=== PATIENT | female | born 1965 | race Caucasian/White ===

== ENCOUNTER 2016-07-23 09:43 | Inpatient (IN) | payer BC ==
[~2016-07-23] VITALS: Ht 165.1 cm; Wt 68.0 kg
[2016-07-23 09:43] VITALS: BP_SYST 144
[2016-07-23] MEDS ORDERED: PIPERACILLIN/TAZO 3.38 GM in D5W 50 ML IV ONE (10:00)
[2016-07-23 10:08] LABS: BILIRUBIN,URINE NEGATIVE (NEGATIVE); BLOOD, URINE 2+ (NEGATIVE); CLARITY/URINE CLEAR (CLEAR); COLOR,URINE YELLOW (YELLOW); GLUCOSE,URINE NEGATIVE (NEGATIVE); KETONES,URINE NEGATIVE (NEGATIVE); LEUKOCYTE ESTERASE ,URINE NEGATIVE (NEGATIVE); NITRITE, URINE NEGATIVE (NEGATIVE); PROTEIN URINE NEGATIVE (NEGATIVE); UROBILINOGEN,URINE 0.2 (0.2-1.0)
[2016-07-23 10:16] LABS: BACTERIA,URINE RARE /HPF (None Seen); WBC,URINE 0-3 /HPF (0-3)
[2016-07-23] MEDS ORDERED: PIPERACILLIN/TAZOBACTAM 3.375 GM/VIAL (ZOSYN) IV ONE (10:16)
[2016-07-23 10:24] LABS: BASOPHILS # (AUTO) 0.1 K/uL (0.0-0.2); BASOPHILS % (AUTO) 1.2 % (0.0-2.0); EOSINOPHILS # (AUTO) 0.1 K/uL (0.0-0.4); EOSINOPHILS % (AUTO) 1.2 % (0.0-4.0); HEMATOCRIT 42.5 % (36-48); HEMOGLOBIN 14.2 g/dL (12.0-16.0); MEAN CORPUSCULAR HEMOGLOBIN 32 pg (27-31); MEAN CORPUSCULAR HGB CONC 33 % (32-36); MEAN CORPUSCULAR VOLUME 95 fL (79.0-98.0); MONOCYTES # (AUTO) 0.6 K/uL (0.0-1.0); MONOCYTES % (AUTO) 6.9 % (1.7-9.3); NEUTROPHILS # (AUTO) 6.5 K/uL (1.8-7.7); NEUTROPHILS % (AUTO) 69.7 % (40.0-70.0); PLATELET COUNT (AUTO) 198 K/uL (130-430); RED BLOOD CELL COUNT(AUTO) 4.48 MIL/uL (4.2-6.2); RED CELL DISTRIBUTION WIDTH 12.2 % (9.0-15.0); WHITE BLOOD COUNT (AUTO) 9.3 K/uL (4.8-10.8)
[2016-07-23 10:31] LABS: CREATININE 0.7 mg/dL (0.55-1.30); POTASSIUM 4.4 mmol/L (3.5-5.1)
[2016-07-23 10:36] LABS: ALBUMIN 4.2 g/dL (3.4-4.8); TOTAL BILIRUBIN 0.5 mg/dL (0.0-1.0); TOTAL PROTEIN, SERUM 7.8 g/dL (6.4-8.3)
[2016-07-23 10:40] LABS: INR 0.9 (0.8-1.2); PROTHROMBIN TIME 9.9 SECS (9.5-12.5)
[2016-07-23] MEDS ORDERED: MORPHINE 2 MG/ML INJ. SYRINGE IVP ONE (10:45)
[2016-07-23] MEDS ORDERED: ONDANSETRON HCL 4 MG/2 ML VIAL IVP ONE (10:45)
[2016-07-23] MEDS ORDERED: IOHEXOL 100 ML IV ONE (11:19)
[2016-07-23] MEDS ORDERED: [UNRECOGNIZED DRUG - REMARK] XX ONE (12:30)
[2016-07-23] MEDS ORDERED: ESTR0.3T3 PO (12:39)
[2016-07-23] MEDS ORDERED: LEVO150T PO (12:39)
[2016-07-23 12:46] VITALS: BP_SYST 141
[2016-07-23] MEDS ORDERED: KETOROLAC TROMETHAMINE 15 MG VIAL IVP PRN (13:45)
[2016-07-23] MEDS ORDERED: ONDANSETRON HCL 4 MG/2 ML VIAL IVP PRN (13:45)
[2016-07-23] MEDS ORDERED: FAMOTIDINE 20 MG TABLET PO ONE (14:15)
[2016-07-23] MEDS: MORPHINE 4 MG/ML INJ. SYRINGE IVP PRN ×2 (14:17→19:39)
[2016-07-23] MEDS: LR 1,000 ML IV SCH (14:17)
[2016-07-23] MEDS: AMPICILLIN SODIUM/SULBACTAM NA 3 GM in NS 100 ML IV SCH (19:30)
[2016-07-23 19:45] VITALS: BP_SYST 139
[2016-07-23] MEDS: LACTOBACILLUS RHAMNOSUS GG 1 CAP CAPSULE PO SCH (20:52)
[2016-07-23] MEDS: HYDROcodone/ACETAMIN 10-325 MG TAB PO PRN (23:29)
[2016-07-24] VITALS (7 sets, daily range): BP systolic 119–140
[2016-07-24] MEDS: AMPICILLIN SODIUM/SULBACTAM NA 3 GM in NS 100 ML IV SCH ×3 (00:03→11:10)
[2016-07-24] MEDS: TEMAZEPAM 15 MG CAPSULE PO PRN ×2 (00:03→21:40)
[2016-07-24] MEDS: LR 1,000 ML IV SCH (05:33)
[2016-07-24 07:43] LABS: ALBUMIN 3.5 g/dL (3.4-4.8); CALCIUM 8.6 mg/dL (8.4-11.0); CREATININE 0.64 mg/dL (0.55-1.30); POTASSIUM 3.5 mmol/L (3.5-5.1); TOTAL BILIRUBIN 0.6 mg/dL (0.0-1.0)
[2016-07-24 07:44] LABS: BASOPHILS # (AUTO) 0.1 K/uL (0.0-0.2); BASOPHILS % (AUTO) 1.9 % (0.0-2.0); EOSINOPHILS # (AUTO) 0.1 K/uL (0.0-0.4); EOSINOPHILS % (AUTO) 1.6 % (0.0-4.0); HEMATOCRIT 37.9 % (36-48); LYMPHOCYTES # (AUTO) 1.9 K/uL (1.0-5.5); LYMPHOCYTES % (AUTO) 24.8 % (20.5-51.5); MEAN CORPUSCULAR HEMOGLOBIN 33 pg (27-31); MEAN CORPUSCULAR HGB CONC 34 % (32-36); MEAN CORPUSCULAR VOLUME 96 fL (79.0-98.0); MONOCYTES # (AUTO) 0.6 K/uL (0.0-1.0); MONOCYTES % (AUTO) 8.3 % (1.7-9.3); NEUTROPHILS # (AUTO) 5.1 K/uL (1.8-7.7); NEUTROPHILS % (AUTO) 63.4 % (40.0-70.0); PLATELET COUNT (AUTO) 175 K/uL (130-430); RED BLOOD CELL COUNT(AUTO) 3.93 MIL/uL (4.2-6.2); RED CELL DISTRIBUTION WIDTH 12.4 % (9.0-15.0); WHITE BLOOD COUNT (AUTO) 7.8 K/uL (4.8-10.8)
[2016-07-24] MEDS: MORPHINE 4 MG/ML INJ. SYRINGE IVP PRN ×4 (07:47→21:39)
[2016-07-24] MEDS: HYDROcodone/ACETAMIN 10-325 MG TAB PO PRN ×2 (11:03→15:19)
[2016-07-24] MEDS: FAMOTIDINE 20 MG TABLET PO SCH (11:10)
[2016-07-24] MEDS: LACTOBACILLUS RHAMNOSUS GG 1 CAP CAPSULE PO SCH ×2 (11:10→21:39)
[2016-07-25] MEDS: AMPICILLIN SODIUM/SULBACTAM NA 3 GM in NS 100 ML IV SCH ×3 (00:44→11:14)
[2016-07-25] MEDS: LR 1,000 ML IV SCH (00:45)
[2016-07-25 00:53] VITALS: BP_SYST 118
[2016-07-25 04:10] VITALS: BP_SYST 121
[2016-07-25 09:33] VITALS: BP_SYST 130
[2016-07-25] MEDS: FAMOTIDINE 20 MG TABLET PO SCH (09:45)
[2016-07-25] MEDS: LACTOBACILLUS RHAMNOSUS GG 1 CAP CAPSULE PO SCH (09:45)
[2016-07-25 11:49] VITALS: BP_SYST 134
[2016-07-25 12:00] VITALS: BP_SYST 106
== END 2016-07-25 12:35 | disposition home or self-care (01) | DRG 603 ==
LOC: SED 09:43 → SMU 12:24
PROVIDERS: ADMIT Internal Medicine; ATTEND Internal Medicine
DX: L03.211 Cellulitis of face (principal); K02.9 Dental caries, unspecified; G43.909 Migraine, unspecified, not intractable, without status migrainosus; K04.7 Periapical abscess without sinus; E03.9 Hypothyroidism, unspecified; H54.42 Blindness, left eye, normal vision right eye; Z90.710 Acquired absence of both cervix and uterus; Z97.0 Presence of artificial eye
CPT/HCPCS: 36415; 70487; 80053; 81000-TC; 83605; 85025; 85610-TC; 85730-TC; 87040-TC; 96374; 96375; 99285; J0295; J2270; J2405; J2543; J7120; Q9967

== ENCOUNTER 2018-09-27 08:08 | Emergency (ER) | payer BC ==
[~2018-09-27] VITALS: Ht 165.1 cm; Wt 74.8 kg
[~2018-09-27 08:08] MED LIST: ESTR0.3T3 PO; LEVO150T PO
[2018-09-27 08:16] VITALS: BP_SYST 131
--- NOTE | 2018-09-27 08:20 | NUR ---
Patient to ER bed 8 to gown for evaluation. Side rails up. Report given to Krzysztof FRANKEL.
--- NOTE | 2018-09-27 08:21 | NUR ---
Pt is here for c/o throat pain 10/10 for 3-4 days with difficulty swallowing water and saliva. Pt is afebrile, temp is 98.1. Mild redness and exudate noted to back of throat. No tongue swelling noted. Respirations even and unlabored.
--- NOTE | 2018-09-27 08:21 | NUR ---
Dr. De La Cruz at bedside to examine pt.
[2018-09-27] MEDS ORDERED: KETOROLAC TROMETHAMINE 60 MG/2 ML VIAL IM ONE (08:30)
[2018-09-27] MEDS ORDERED: PENICILLIN G BENZATHINE 1.2 MMU/2 ML SYR IM ONE (08:30)
--- NOTE | 2018-09-27 08:46 | NUR ---
Pt was given toradol and bicillin LA per Md order IM. Pt tolerated well, no adverse reaction noted.
--- NOTE | 2018-09-27 09:03 | NUR ---
Patient given written and verbal discharge instructions and verbalizes understanding. ER MD discussed with patient the results and treatment provided. Patient in stable condition. ID arm band removed. Rx of prednisone 20mg, motrin 800, Kiel 5-325mg given. Patient educated on pain management and to follow up with PMD. Pain Scale 5-6. Opportunity for questions provided and answered. Medication side effect fact sheet provided.
[2018-09-27 09:06] VITALS: BP_SYST 129
== END 2018-09-27 09:06 | disposition home or self-care (01) ==
LOC: SED 08:08
DX: J02.9 Acute pharyngitis, unspecified (principal); R03.0 Elevated blood-pressure reading, without diagnosis of hypertension; F17.210 Nicotine dependence, cigarettes, uncomplicated; Z90.710 Acquired absence of both cervix and uterus; Z79.899 Other long term (current) drug therapy
CPT/HCPCS: 96372; 99283; J0561; J1885